=== PATIENT | female | born 1980 | race Two or more races ===

== ENCOUNTER 2016-11-18 10:52 | Emergency (ER) | payer MEDICAID ==
[~2016-11-18] VITALS: Ht 172.7 cm; Wt 59.9 kg
[2016-11-18 11:00] VITALS: BP 121/74
== END 2016-11-18 11:21 | disposition home or self-care (01) ==
LOC: ER 10:54
DX: J06.9 Acute upper respiratory infection, unspecified (principal); F41.9 Anxiety disorder, unspecified; Z90.49 Acquired absence of other specified parts of digestive tract
CPT/HCPCS: 99283; A4606; Z7610